=== PATIENT | male | born 2000 | race Caucasian/White ===

== ENCOUNTER 2022-10-24 17:22 | Emergency (ER) | payer BC, SELFPAY ==
--- NOTE | 2022-10-24 17:23 | ED.SKABFB ---
HPI - Skin/Abscess/Foreign Bdy General Chief complaint: Skin/Abscess/Foreign Body <JUNE Rogel Last Filed: 10/24/22 17:30> Stated complaint: poison mimi <JUNE Rogel Last Filed: 10/24/22 17:30> Time Seen by Provider: 10/24/22 19:09 <JUNE Rogel Last Filed: 10/24/22 17:30> Source: patient <JUNE Nino Last Filed: 10/24/22 20:12> Mode of arrival: ambulatory <JUNE Nino Last Filed: 10/24/22 20:12> Limitations: no limitations <JUNE Nino Last Filed: 10/24/22 20:12> History of Present Illness HPI narrative: This is a 22-year-old male presenting to the emergency department for evaluation of poison mimi throughout body, patient tells me this started on Sunday and has been seen at urgent care multiple times for this. Patient tells me it has affected nearly his entire body at this point he is taking Pepcid twice a day, is currently on 60 mg of prednisone on day 5 he is on a prednisone taper which is prescribed to him by Urgent Care also taking Zyrtec once daily and Benadryl at night. He tells me he frequently gets poison mimi however has never been this bad. Patient denies nausea, vomiting, chest pain, shortness of breath, headache, vision changes, dizziness, difficulty swallowing, changes in voice. <JUNE Nino Last Filed: 10/24/22 20:12> Related Data Allergies/Adverse reactions: Allergies Allergy/AdvReac Type Severity Reaction Status Date / Time No Known Allergies Allergy Verified 10/24/22 17:27 <JUNE Rogel Last Filed: 10/24/22 17:30> Review of Systems Review of Systems: Constitutional : No Weight loss, No Fever, No Chills, No Fatigue, No Malaise ENT/Mouth : No sore throat, No Rhinorrhea Eyes: No Eye Pain, No Swelling, No Redness Cardiovascular : No Chest Pain, No SOB, No Dyspnea on Exertion, No Orthopnea, No Edema, No Palpitations Respiratory : No Cough, No Sputum, No Wheezing Gastrointestinal : No Nausea, No Vomiting, No Diarrhea, No Constipation, No abdominal Pain, No Hematochezia, No Melena Genitourinary : No Dysuria, No Urinary Frequency, No Hematuria, Musculoskeletal : No joint pain, No Myalgias, No Joint Swelling Skin : No Skin Lesions, + rash Neuro : No Weakness, No Numbness, No Dizziness, No Headache Psych : No Anxiety/Panic, No Depression All other systems reviewed and are negative <JUNE Nino - Last Filed: 10/24/22 20:12> Yes all other systems are reviewed and are negative <JUNE Nino - Last Filed: 10/24/22 20:12> [facility] Past Medical History Attestation statement: The following information was validated with the patient. <JUNE Nino - Last Filed: 10/24/22 20:12> Source: old records reviewed and nursing notes reviewed <JUNE Nino - Last Filed: 10/24/22 20:12> Social History Social History: Social History Advance Directives: No Advance Directives Information Provided: No <JUNE Rogel - Last Filed: 10/24/22 17:30> Physical Exam Vital Signs: Vital Signs: Last Vital Signs Temp 98.4 F 10/24/22 17:26 Pulse 70 10/24/22 17:26 Resp 18 10/24/22 17:26 BP 132/86 10/24/22 17:26 Pulse Ox 99 10/24/22 17:26 O2 Del Method Room Air 10/24/22 17:26 BMI result Body Mass Index 21.5 <JUNE Rogel - Last Filed: 10/24/22 17:30> Vital Signs: Last Vital Signs Temp 98.4 F 10/24/22 17:26 Pulse 70 10/24/22 17:26 Resp 18 10/24/22 17:26 BP 132/86 10/24/22 17:26 Pulse Ox 99 10/24/22 17:26 O2 Del Method Room Air 10/24/22 17:26 BMI result Body Mass Index 21.5 vss <JUNE Nino - Last Filed: 10/24/22 20:12> Appearance: Alert.? Oriented X3.? No acute distress.? Head: Normocephalic, atraumatic, no step-offs or deformities Throat: Patent airway, no edema, patient is speaking in full sentences in controlling secretions well. Eyes: Pupils equal, round and reactive to light.? CVS: Normal heart rate and rhythm.? Pulses normal.? Respiratory: No respiratory distress.? Breath sounds normal.? Abdomen: Soft and nontender.? Skin: Skin warm and dry.? Normal skin color.? Normal skin turgor. Intensely pruritic erythematous papules and plaques arranged in streak like configurations to upper, lower extremities, abdomen, back, neck, face and genital region with surrounding excoriations likely from patient itching. Calms insoles of feet are not involved. No sloughing. rash is blanchable. Extremities: No lower extremity edema.? No calf ttp. 5/5 strength to bilateral upper and lower extremities Back: No midline tenderness, no C-spine tenderness, full range of motion, no CVA tenderness bilaterally Neuro: Oriented X 3.? No motor deficit.? No sensory deficit. CN 2-12 intact <JUNE Nino - Last Filed: 10/24/22 20:12> Course Course Course Narrative: FABIO--22-year-old no past medical history sent to ED from urgent care for IV steroids due to persistent poison mimi x4 days. Has been taking Prednisone taper since Sunday, Pepcid, Zyrtec & Benadryl w/o relief. Denies recent exposure/antibiotics +diffuse erythematous macular patches noted to face, neck, b/l UE, abdomen, back and upper thighs, blanching. No palm/sole involvement. No sloughing IV Solu-Medrol, Benadryl, Pepcid and Claritin ordered <JUNE Rogel - Last Filed: 10/24/22 17:30> Reevaluation(s) Reevaluation #1: I did discuss this case w/ Dr. Bryson who recommends continuing at prescribed steroid it does will give Solu-Medrol, Pepcid here. No need for antibiotics at this time per Dr. Bryson. No need for further intervention she recommends time. Labs do show slight leukocytosis however no evident signs of cellulitis at this time. Chemistry unremarkable. Educated patient on diagnosis and treatment plan, answered all question, patient verbalizes understanding. At this time patient will be discharged home, advised to return with new or worsening symptoms. Educated on worrisome signs and symptoms and when to return. At this time I feel comfortable discharge home. <JUNE Nino - Last Filed: 10/24/22 20:12> Time: 20:09 <JUNE Nino - Last Filed: 10/24/22 20:12> Medications Administered Discontinued Medications Generic Name Dose Route Start Last Admin Trade Name Freq PRN Reason Stop Dose Admin Diphenhydramine HCl 50 mg 10/24/22 17:27 10/24/22 19:53 Diphenhydramine Hcl 50 Mg/Ml Vial IVPUSH 10/24/22 17:28 Not Given ONCE ONE Famotidine 20 mg 10/24/22 17:27 10/24/22 19:54 Famotidine/Pf 20 Mg/2 Ml Vial IVPUSH 10/24/22 17:28 20 mg ONCE ONE Administration Loratadine 10 mg 10/24/22 17:27 10/24/22 19:53 Loratadine 10 Mg Tablet PO 10/24/22 17:28 10 mg ONCE ONE Administration Methylprednisolone Sodium Succinate 125 mg 10/24/22 17:27 10/24/22 19:53 Methylprednisolone Sod Succ 125 Mg/2 Ml Vial IVPUSH 10/24/22 17:28 125 mg ONCE ONE Administration <JUNE Rogel - Last Filed: 10/24/22 17:30> Medications Administered Discontinued Medications Generic Name Dose Route Start Last Admin Trade Name Freq PRN Reason Stop Dose Admin Diphenhydramine HCl 50 mg 10/24/22 17:27 10/24/22 19:53 Diphenhydramine Hcl 50 Mg/Ml Vial IVPUSH 10/24/22 17:28 Not Given ONCE ONE Famotidine 20 mg 10/24/22 17:27 10/24/22 19:54 Famotidine/Pf 20 Mg/2 Ml Vial IVPUSH 10/24/22 17:28 20 mg ONCE ONE Administration Loratadine 10 mg 10/24/22 17:27 10/24/22 19:53 Loratadine 10 Mg Tablet PO 10/24/22 17:28 10 mg ONCE ONE Administration Methylprednisolone Sodium Succinate 125 mg 10/24/22 17:27 10/24/22 19:53 Methylprednisolone Sod Succ 125 Mg/2 Ml Vial IVPUSH 10/24/22 17:28 125 mg ONCE ONE Administration <JUNE Nino - Last Filed: 10/24/22 20:12> Medical Decision Making Medical Decision Making [facility] Narrative: 2004 22 year old male presents with rash throughout body since Sunday Physical exam significant for Intensely pruritic erythematous papules and plaques arranged in streak like configurations to upper, lower extremities, abdomen, back, neck, face and genital region with surrounding excoriations likely from patient itching Concerns for worsening poison mimi. Other differentials include impetigo. Unlikley TEN, SJS, necrotizing infectionn Plan- basic labs. Will discuss w/ my attendign <JUNE Nino - Last Filed: 10/24/22 20:12> Differential Diagnosis Differential Diagnoses: The differential diagnosis associated with the presentation includes <JUNE Nino - Last Filed: 10/24/22 20:12> Concerns for worsening poison mimi. Other differentials include impetigo. Unlikley TEN, SJS, necrotizing infectionn <JUNE Nino - Last Filed: 10/24/22 20:12> Admission/Observation Consideration of admission/observation: Escalation of care including admission/observation considered <JUNE Nino - Last Filed: 10/24/22 20:12> Unlikely <JUNE Nino - Last Filed: 10/24/22 20:12> Consult Healthcare Provider Management of the patient was discussed with: Coiled Tubing Operator (Dr. Bryson ) <JUNE Nino - Last Filed: 10/24/22 20:12> Lab Data [facility] Lab Attestation statement: I reviewed the patient's lab results. <JUNE Nino - Last Filed: 10/24/22 20:12> Result Diagrams: 10/24/22 19:41 10/24/22 19:40 <JUNE Rogel - Last Filed: 10/24/22 17:30> Labs: Lab Results 10/24/22 Range/Units 19:41 WBC 11.4 H (4.8-10.8) X10*3/uL RBC 5.53 (4.60-5.80) X10*6/uL Hgb 17.5 (14.0-18.0) g/dl Hct 48.9 (42.0-52.0) % MCV 88.4 (80.0-98.0) fL MCH 31.6 (27.0-33.0) pg MCHC 35.8 (31.0-36.0) g/dl RDW 12.0 (11.0-16.0) % Plt Count 299 (160-400) X10*3/uL MPV 9.4 (9.4-12.4) fL Immature Gran % (Auto) 0.5 H (0.0-0.4) % Neut % (Auto) 89.9 H (45-73) % Lymph % (Auto) 6.8 L (20-40) % Ness % (Auto) 2.5 (2-11) % Eos % (Auto) 0.2 (0-4) % Baso % (Auto) 0.1 (0-2) % Lymph # (Auto) 0.8 L (1.2-4.9) X10*3/uL Ness # (Auto) 0.3 (0.1-1.2) X10*3/uL Eos # (Auto) 0.0 (0.0-0.4) X10*3/uL Baso # (Auto) 0.0 (0.0-0.2) X10*3/uL Abs Immat Gran (auto) 0.06 H (0.00-0.03) X10*3/uL Absolute Neuts (auto) 10.3 H (2.0-8.3) x10*3/uL Absolute Nucleated RBC 0.000 (0.0-0.012) X10*3/uL Nucleated RBC % (auto) 0.0 (0.0-0.2) /100WBC <JUNE Rogel - Last Filed: 10/24/22 17:30> Lab Results 10/24/22 Range/Units 19:41 WBC 11.4 H (4.8-10.8) X10*3/uL RBC 5.53 (4.60-5.80) X10*6/uL Hgb 17.5 (14.0-18.0) g/dl Hct 48.9 (42.0-52.0) % MCV 88.4 (80.0-98.0) fL MCH 31.6 (27.0-33.0) pg MCHC 35.8 (31.0-36.0) g/dl RDW 12.0 (11.0-16.0) % Plt Count 299 (160-400) X10*3/uL MPV 9.4 (9.4-12.4) fL Immature Gran % (Auto) 0.5 H (0.0-0.4) % Neut % (Auto) 89.9 H (45-73) % Lymph % (Auto) 6.8 L (20-40) % Ness % (Auto) 2.5 (2-11) % Eos % (Auto) 0.2 (0-4) % Baso % (Auto) 0.1 (0-2) % Lymph # (Auto) 0.8 L (1.2-4.9) X10*3/uL Ness # (Auto) 0.3 (0.1-1.2) X10*3/uL Eos # (Auto) 0.0 (0.0-0.4) X10*3/uL Baso # (Auto) 0.0 (0.0-0.2) X10*3/uL Abs Immat Gran (auto) 0.06 H (0.00-0.03) X10*3/uL Absolute Neuts (auto) 10.3 H (2.0-8.3) x10*3/uL Absolute Nucleated RBC 0.000 (0.0-0.012) X10*3/uL Nucleated RBC % (auto) 0.0 (0.0-0.2) /100WBC <JUNE Nino - Last Filed: 10/24/22 20:12> Core Measures AMI core measures followed: Yes <JUNE Nino - Last Filed: 10/24/22 20:12> Measure exclusions: not indicated <JUNE Nino - Last Filed: 10/24/22 20:12> Critical Care Time Critical Care Time Critical Care Time: Yes <JUNE Nino - Last Filed: 10/24/22 20:12> Total Critical Care Time: 35 <JUNE Nino Last Filed: 10/24/22 20:12> Attestation: I attest to this time spent taking care of the patient, obtaining history, physical, reviewing labs, imaging, speaking to my attending <JUNE Nino - Last Filed: 10/24/22 20:12> Discharge Plan Discharge Clinical Impression: Rash, Poison mimi <JUNE Rogel Last Filed: 10/24/22 17:30> Patient Disposition: Home, Self-Care <JUNE Rogel Last Filed: 10/24/22 17:30> Instructions: Poison Mimi (ED), Acute Rash (ED), Cold Compress or Soak (ED) <JUNE Rogel Last Filed: 10/24/22 17:30> Additional Instructions: Take your medications as prescribed. If you were prescribed antibiotics today, it is important that you take your medication to their entirety, do not skip any doses, do not finish them early. Follow-up with your primary care provider this week. Return to the emergency department with new or worsening symptoms. Such as fevers, chills, chest pain, shortness of breath, nausea, vomiting, dizziness, headache, vision changes, lethargy, worsening redness or swelling, visual disturbances, issues with urination, difficulty breathing or changes in voice. In case of emergency call 911 Please wear eye protection when you go outside, and wear long-sleeved clothing if possible. Please do not touch affected area and then touch in unaffected area as this can spread. Please continue your prescribed steroid taper You can take 50 mg of Benadryl at night. You can continue taking Pepcid and Zyrtec. If symptoms do not improve you may have to see Dermatology or return here for further evaluation and treatment. <JUNE Rogel Last Filed: 10/24/22 17:30> Referrals: Physician,Unknown J [Primary Care Provider] - 2 days <JUNE Rogel Last Filed: 10/24/22 17:30> Stand Alone Forms: Work/School Release <JUNE Rogel - Last Filed: 10/24/22 17:30>
[2022-10-24 17:26] VITALS: BP 132/86; PULSE 70; RESP 18; TEMP 36.9; O2SAT 99; BMI 21.5
[2022-10-24 19:47] LABS: MANUAL DIFF FLAG NO
[2022-10-24 19:51] LABS: Basophils Percent Auto 0.1 % (0-2); Eosinophils Percent Auto 0.2 % (0-4); Hematocrit 48.9 % (42.0-52.0); Hemoglobin 17.5 g/dl (14.0-18.0); Imm Gran Abs Auto 0.06 X10*3/uL (0.00-0.03); Imm Gran Pct Auto 0.5 % (0.0-0.4); Lymphocytes Absolute Auto 0.8 X10*3/uL (1.2-4.9); Lymphocytes Percent Auto 6.8 % (20-40); Mean Corpuscular HGB Conc 35.8 g/dl (31.0-36.0); Mean Corpuscular Hemoglobin 31.6 pg (27.0-33.0); Mean Corpuscular Volume 88.4 fL (80.0-98.0); Mean Platelet Volume 9.4 fL (9.4-12.4); Monocytes Absolute Auto 0.3 X10*3/uL (0.1-1.2); Monocytes Percent Auto 2.5 % (2-11); Neutrophils Absolute Auto 10.3 x10*3/uL (2.0-8.3); Neutrophils Percent Auto 89.9 % (45-73); Platelet Count 299 X10*3/uL (160-400); Red Blood Count 5.53 X10*6/uL (4.60-5.80); White Blood Count 11.4 X10*3/uL (4.8-10.8)
[2022-10-24] MEDS: Loratadine 10 MG TABLET PO (19:53)
[2022-10-24] MEDS: methylPREDNISolone Sod Succ 125 MG/2 ML VIAL IVPUSH (19:53)
[2022-10-24] MEDS: Famotidine/PF 20 MG/2 ML VIAL IVPUSH (19:54)
[2022-10-24 20:04] LABS: Alanine Aminotransferase 27 U/L (0-40); Alkaline Phosphatase 121 U/L (39-117); Anion Gap 15 (12-20); Aspartate Amino Transferase 19 U/L (5-37); Bilirubin Total 0.6 mg/dL (0.0-1.0); Blood Urea Nitrogen 10 mg/dL (9-16); Calcium 9.5 mg/dL (8.4-10.2); Carbon Dioxide 23 mmol/L (22-29); Chloride 108 mmol/L (96-108); Creatinine Clr Calc Pharmacy 93.7; Estimated Glomerular Filt Rate > 60; Glucose Random 143 mg/dL (60-115); Sodium 142 mmol/L (135-145); Total Protein 7.7 g/dL (6.5-8.0)
--- NOTE | 2022-10-24 20:15 | PC.NURSE ---
Patient with exposure to poison bernabe on Sunday; noticed rash on Sunday when he went to Urgent care to be seen. Patient was placed on steroids at that time but did not notice any improvement so went back to Urgent care today who sent patient to the ED. Patient noted to have a rash on his face, neck, arms, and upper body. Patient able to maintain airway and is breathing without difficulty.
== END 2022-10-24 20:27 | disposition home or self-care (01) ==
PROVIDERS: Physician Assistant; Emergency Provider Student in an Organized Health Care Education/Training Program
DX: L23.7 Allergic contact dermatitis due to plants, except food (principal); Z79.899 Other long term (current) drug therapy
CPT/HCPCS: 36415; 80053; 85025; 96374; 96375; 99284; J2930